=== PATIENT | male | born 1985 | race Caucasian/White ===

== ENCOUNTER 2016-08-06 11:25 | Emergency (ER) | payer OTHER ==
[~2016-08-06] VITALS: Ht 182.9 cm; Wt 80.0 kg
[2016-08-06 11:32] VITALS: BP 142/77; PULSE 97; RESP 21; TEMP 98.4; O2SAT 99
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
[2016-08-06] MEDS ORDERED: LORazepam 0.5 MG TAB PO ONE (12:15)
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
[2016-08-06 13:15] VITALS: BP 136/84
== END 2016-08-06 13:20 | disposition home or self-care (01) ==
LOC: NEPD 11:25
DX: H57.11 Ocular pain, right eye (principal); S00.211A Abrasion of right eyelid and periocular area, initial encounter; F41.9 Anxiety disorder, unspecified; Z86.79 Personal history of other diseases of the circulatory system; Y04.2XXA Assault by strike against or bumped into by another person, initial encounter
CPT/HCPCS: 70486; 99284